=== PATIENT | male | born 1950 | race American Indian/Alaskan Native ===

== ENCOUNTER 2020-08-30 05:42 | Day surgery (SDC) | payer MEDICARE, MEDICAID ==
[2020-08-30] VITALS (10 sets, daily range): BP systolic 110–139; BP diastolic 57–75
[~2020-08-30] VITALS: Ht 172.7 cm; Wt 81.3 kg
[2020-08-30] MEDS ORDERED: normal saline 1,000 ML IV SCH (06:10)
[2020-08-30] MEDS ORDERED: LORazepam 0.5 MG tablet PO PRN (06:10)
[2020-08-30] MEDS ORDERED: diphenhydrAMINE 25mg capsule PO PRN (06:10)
[2020-08-30] MEDS ORDERED: LIDOcaine/PRILOcaine 5gm cream TP ONE (06:10)
[2020-08-30] MEDS ORDERED: ATOR10TA70 PO (06:12)
[2020-08-30] MEDS ORDERED: CHOL200074 PO (06:12)
[2020-08-30] MEDS ORDERED: LISI-790 PO (06:12)
[2020-08-30] MEDS ORDERED: ASPI-1265 PO (06:12)
[2020-08-30] MEDS ORDERED: LEVO150T8 PO (06:12)
[2020-08-30 06:49] LABS: BASOPHILS % (AUTO) 0.2 % (0-1); EOSINOPHILS # (AUTO) 0.6 X10'3 (0-0.9); EOSINOPHILS % (AUTO) 7.5 % (0-6); HEMATOCRIT 38.8 % (42.0-52.0); HEMOGLOBIN 13.1 g/dl (14.0-17.9); LYMPHOCYTES # (AUTO) 3.2 X10'3 (1.1-4.8); LYMPHOCYTES % (AUTO) 39.3 % (21-51); MEAN CORPUSCULAR HEMOGLOBIN 29.8 PG (27.0-31.0); MEAN CORPUSCULAR HGB CONC 33.9 g/dL (33.0-36.5); MEAN PLATELET VOLUME 7.2 FL (7.4-10.4); MONOCYTES # (AUTO) 0.9 X10'3 (0-0.9); MONOCYTES % (AUTO) 11.2 % (2-12); NEUTROPHILS # (AUTO) 3.4 X10'3 (1.8-7.7); NEUTROPHILS % (AUTO) 41.8 % (42-75); PLATELET COUNT 318 X10'3 (140-440); RED CELL DISTRIBUTION WIDTH 14.2 % (11.5-14.5); WHITE BLOOD COUNT 8.1 X10'3 (4.5-11.0)
[2020-08-30 06:58] LABS: PARTIAL THROMBOPLASTIN TIME 27 SECONDS (22-32)
[2020-08-30] MEDS ORDERED: fentaNYL/PF 50MCG/1 ML 2ML syringe ONE (07:02)
[2020-08-30] MEDS ORDERED: iohexol 350 MG/ML 50ML vial IV ONE (07:02)
[2020-08-30] MEDS ORDERED: midazolam 1 mg/ML 2ml injection ONE (07:02)
[2020-08-30] MEDS ORDERED: LIDOcaine 1% (10mg/ml)w/preservative injection 20ml MDV ONE (07:02)
[2020-08-30] MEDS ORDERED: iohexol 350MG/ML 100ml bottle IV ONE (07:02)
[2020-08-30] MEDS ORDERED: verapamil 2.5 mg/ml inj IV ONE (07:07)
[2020-08-30] MEDS ORDERED: nitroGLYCERIN-Tridil 50MG/D5W 250 ML IV ONE (07:07)
[2020-08-30] MEDS ORDERED: heparin 1,000unit/ml 10ml vial 10 ML ONE (07:07)
[2020-08-30 07:17] LABS: ALBUMIN 3.2 G/DL (3.4-5.0); ANION GAP 9 (8-16); BLOOD UREA NITROGEN 21 MG/DL (7-18); BUN/CREATININE RATIO 22.1 (5.4-32.0); CALCIUM 8.4 MG/DL (8.5-10.1); CHLORIDE 108 MMOL/L (99-107); CREATININE 0.95 MG/DL (0.60-1.10); GLUCOSE 89 MG/DL (70-104); POTASSIUM 3.8 MMOL/L (3.5-5.1); SODIUM 143 MMOL/L (135-145); TOTAL CARBON DIOXIDE 25.6 MMOL/L (24-32); eGFR 78 ML/MIN
[2020-08-30] MEDS ORDERED: ondansetron/PF 4mg/2ml inj IV PRN (09:00)
[2020-08-30] MEDS ORDERED: HYDROcodone/acetaminophen 5mg/325mg tablet PO PRN (09:00)
[2020-08-30] MEDS ORDERED: HYDROcodone/acetaminophen 10/325mg tab PO PRN (09:00)
[2020-08-30] MEDS ORDERED: proCHLORperazine 10 MG/2 ml inj IV PRN (09:00)
[2020-08-30] MEDS ORDERED: OXAZEpam 15mg capsule PO PRN (09:00)
--- NOTE | 2020-08-30 11:22 | NUR ---
Pt laying in bed, eating breakfast tray. VS stable as charted. Will continue to monitor.
== END 2020-08-30 14:00 | disposition home or self-care (01) ==
LOC: SSTAY O 05:42
PROVIDERS: ATTEND Internal Medicine Interventional Cardiology
DX: I34.0 Nonrheumatic mitral (valve) insufficiency (principal); I25.10 Atherosclerotic heart disease of native coronary artery without angina pectoris; I25.82 Chronic total occlusion of coronary artery; I10 Essential (primary) hypertension; E03.9 Hypothyroidism, unspecified; E78.5 Hyperlipidemia, unspecified; Z79.899 Other long term (current) drug therapy; Z79.82 Long term (current) use of aspirin; Z87.891 Personal history of nicotine dependence; Z79.01 Long term (current) use of anticoagulants
CPT/HCPCS: 36415; 80048; 85025; 85610; 85730; 93005; 93458; 99152; C1760; C1769; C1894; J1644; J2001; J2250; J3010; J7030; Q0163; Q9967; 99153; A4620; A5120; J3490